=== PATIENT | male | born 1990 | race African-American/Black ===

== ENCOUNTER 2017-11-08 22:10 | Emergency (ER) | payer SELFPAY ==
[~2017-11-08] VITALS: Ht 180.3 cm; Wt 112.0 kg
[2017-11-08] MEDS ORDERED: ONDANSETRON 2MG/ML, 2ML ONE ×2 (22:25→22:36)
[2017-11-08] MEDS ORDERED: FAMOTIDINE 20 MG TABLET ONE (22:26)
[2017-11-08] MEDS ORDERED: KETOROLAC 30 MG/1 ML ONE ×2 (22:26→22:36)
[2017-11-08] MEDS ORDERED: ONDANSETRON 2MG/ML, 2ML IVPush ONE (22:30)
[2017-11-08] MEDS ORDERED: KETOROLAC 30 MG/1 ML IVPush ONE (22:30)
[2017-11-08] MEDS ORDERED: SODIUM CHLORIDE 0.9% 1,000ML IVBOLUS ONE ×2 (22:30→23:30)
[2017-11-08] MEDS ORDERED: FAMOTIDINE 20 MG/2 ML IVP ONE (22:30)
[2017-11-08] MEDS ORDERED: SODIUM CHLORIDE FLUSH 10ML SYR IVF ONE (22:30)
[2017-11-08 22:32] LABS: MEAN CORPUSCULAR HGB CONC 34.3 g/dL (33.2-36.2); MEAN CORPUSCULAR VOLUME 96.2 fL (81-97); MEAN PLATELET VOLUME 7.8 fL (7.4-10.4); PLATELET COUNT 203 x10^3/uL (130-400); RED BLOOD COUNT 4.78 x10^6/uL (4.38-5.82); RED CELL DISTRIBUTION WIDTH 12.6 % (9.4-14.8)
[2017-11-08 22:44] LABS: ALANINE AMINOTRANSFERASE 115 U/L (12-78); ALBUMIN 3.6 g/dL (3.4-5.0); ANION GAP 8 mmol/L (5-15); CALCIUM 9.2 mg/dL (8.5-10.1); CHLORIDE 106 mmol/L (98-107); CREATININE 1.43 mg/dL (0.7-1.3)
[2017-11-08 22:47] LABS: ALKALINE PHOSPHATASE 71 U/L (45-117); BILIRUBIN,TOTAL 1.1 mg/dL (0.2-1.0); TOTAL PROTEIN 7.6 g/dL (6.4-8.2)
[2017-11-08 23:13] LABS: MD YES
[2017-11-08 23:16] LABS: LYMPH#(MANUAL) 2.25 x10^3/uL (1-3.4); LYMPHS% (MANUAL) 23 % (22-44); MONOS#(MANUAL) 0.98 x10^3/uL (0.3-2.7); MONOS% (MANUAL) 10 % (2-9); SEG#(MANUAL) 6.57 x10^3/uL (1.8-6.8); SEGS% (MANUAL) 67 % (42-75)
[2017-11-08 23:17] LABS: <PLATELET ESTIMATE> ADEQUATE; <PLT MORPHOLOGY> NORMAL PLT MORPH; <RBC MORPHOLOGY> NORMAL
[2017-11-09 00:52] VITALS: BP 145/102
== END 2017-11-09 00:22 ==
LOC: ED 23:16
DX: B34.9 Viral infection, unspecified (principal); F17.200 Nicotine dependence, unspecified, uncomplicated
CPT/HCPCS: 36415; 80053; 83690; 85025; 96361; 96374; 96375; 99284; J1885; J2405; J7030; S0028

== ENCOUNTER 2019-02-12 15:36 | Emergency (ER) | payer MEDICAID ==
[~2019-02-12] VITALS: Ht 182.9 cm; Wt 138.2 kg
[2019-02-12 17:07] LABS: BASOPHILS # (AUTO) 0.03 x10^3/uL (0-0.1); BASOPHILS % (AUTO) 1 % (0-1); EOSINOPHILS # (AUTO) 0.02 x10^3/uL (0-0.4); EOSINOPHILS % (AUTO) 0 % (1-7); LYMPHOCYTES # (AUTO) 2.19 x10^3/uL (1-3.4); LYMPHOCYTES % (AUTO) 29 % (22-44); MD NO; MEAN CORPUSCULAR HEMOGLOBIN 33.3 pg (27.5-34.5); MEAN CORPUSCULAR HGB CONC 33.7 g/dL (33.2-36.2); MEAN CORPUSCULAR VOLUME 98.8 fL (81-97); MEAN PLATELET VOLUME 8.2 fL (7.4-10.4); MONOCYTES # (AUTO) 0.89 x10^3/uL (0.2-0.8); MONOCYTES % (AUTO) 12 % (2-9); NEUTROPHILS # (AUTO) 4.31 x10^3/uL (1.8-6.8); NEUTROPHILS % (AUTO) 58 % (42-75); PLATELET COUNT 191 x10^3/uL (130-400); RED BLOOD COUNT 4.68 x10^6/uL (4.38-5.82); RED CELL DISTRIBUTION WIDTH 12.4 % (9.4-14.8)
[2019-02-12 17:19] LABS: ALANINE AMINOTRANSFERASE 116 U/L (12-78); ALBUMIN 3.9 g/dL (3.4-5.0); ANION GAP 3 mmol/L (5-15); CALCIUM 9.1 mg/dL (8.5-10.1); CHLORIDE 106 mmol/L (98-107); CREATININE 1.32 mg/dL (0.7-1.3)
[2019-02-12 17:21] LABS: ALKALINE PHOSPHATASE 72 U/L (45-117); BILIRUBIN,TOTAL 0.9 mg/dL (0.2-1.0); TOTAL PROTEIN 7.7 g/dL (6.4-8.2)
--- NOTE | 2019-02-12 18:27 | NUR ---
PT TO ROOM FROM LOBBY.
[2019-02-12] MEDS ORDERED: SODIUM CHLORIDE FLUSH 10ML SYR IVF ONE (18:30)
[2019-02-12] MEDS ORDERED: ONDANSETRON 2MG/ML, 2ML IVPush ONE (18:30)
--- NOTE | 2019-02-12 18:42 | NUR ---
PT ARRIVED TO ROOM 14 AMBULATORY WITH SIGNIFICANT OTHER. PT C/O NAUSEA/VOMITTING/DIARRHEA APPROX 12 HOURS AND PAIN IN RIGHT UPPER QUADRANT AND RADIATING TO RIGHT FLANK INTERMITTENTLY FOR APPROX. 3 WEEKS. PT AOO X 4, VSS, DRESSED IN GOWN AND RESTING IN GURNEY.
[2019-02-12] MEDS ORDERED: ONDANSETRON 2MG/ML, 2ML ONE (18:45)
[2019-02-12] MEDS ORDERED: MORPHINE SULFATE 4 MG/ML, 1ML ONE ×2 (18:46→20:04)
[2019-02-12] MEDS: MORPHINE SULFATE 4 MG/ML, 1ML IVPush PRN ×2 (18:49→20:06)
--- NOTE | 2019-02-12 18:50 | NUR ---
PT MEDICATED PER OCT. REPORT GIVEN TO SARANYA RUIZ.
[2019-02-12 19:13] LABS: CULTURE INDICATED? YES; MICROSCOPIC INDICATED
[2019-02-12] MEDS ORDERED: FAMOTIDINE 20 MG/2 ML IVPush ONE (19:30)
[2019-02-12] MEDS ORDERED: OMNIPAQUE 350 MG/ML, 100ML BOTTLE ONE (19:51)
[2019-02-12] MEDS ORDERED: FAMOTIDINE 20 MG/2 ML ONE (20:05)
--- NOTE | 2019-02-12 20:11 | NUR ---
PT CONTINUES TO HAVE ABDOMINAL PAIN. REMEDICATED PER ORDERS. AWAITING CT RESULTS
--- NOTE | 2019-02-12 20:34 | NUR ---
TASK RN: PT. REPORTS PAIN IS DOWN TO 6/10 AFTER PAIN MEDS. PT. VERBALIZED UNDERSTANDING OF ALL D/C INSTRUCTIONS. MELISA.
[2019-02-12 20:35] VITALS: BP 146/90
== END 2019-02-12 20:37 | disposition home or self-care (01) ==
LOC: ED 20:31
DX: R10.11 Right upper quadrant pain (principal); R11.2 Nausea with vomiting, unspecified; R19.7 Diarrhea, unspecified; R94.5 Abnormal results of liver function studies; E66.9 Obesity, unspecified
CPT/HCPCS: 36415; 74177; 76700; 80053; 81001; 83690; 85025; 87086; 96374; 96375; 96376; 99284; J2270; J2405; J3490; Q9967